=== PATIENT | female | born 1975 ===

== ENCOUNTER 2018-05-15 14:21 | Emergency (ER) | payer OTHER ==
[~2018-05-15] VITALS: Ht 165.1 cm; Wt 113.4 kg
[2018-05-15] MEDS ORDERED: KETOROLAC TROME10 MG PO (17:33)
== END 2018-05-15 17:50 | disposition home or self-care (01) ==
LOC: ED 14:21
DX: S80.01XA Contusion of right knee, initial encounter (principal); S70.02XA Contusion of left hip, initial encounter; Z91.013 Allergy to seafood; V89.2XXA Person injured in unspecified motor-vehicle accident, traffic, initial encounter; Y92.411 Interstate highway as the place of occurrence of the external cause
CPT/HCPCS: 99283